=== PATIENT | male | born 1960 | race Caucasian/White ===

== ENCOUNTER 2018-08-01 11:41 | Emergency (ER) | payer OTHER ==
[~2018-08-01] VITALS: Ht 165.1 cm; Wt 90.7 kg
[2018-08-01 11:41] VITALS: Ht 165.1 cm; Wt 90.7 kg
== END 2018-08-01 17:20 | disposition expired ==
LOC: ED 11:41
DX: I46.9 Cardiac arrest, cause unspecified (principal); Z98.890 Other specified postprocedural states
CPT/HCPCS: J0171; J3490